=== PATIENT | female | born 1980 | race Two or more races ===

== ENCOUNTER 2019-03-31 18:20 | Outpatient (CLI) | payer SELFPAY ==
[2019-03-31 19:01] LABS: APPEARANCE,URINE CLEAR; BILIRUBIN,URINE NEGATIVE (NEGATIVE); COLOR,URINE YELLOW; GLUCOSE, URINE NEGATIVE (NEGATIVE); KETONES,URINE NEGATIVE (NEGATIVE); LEUKOCYTE ESTERASE,URINE MODERATE (NEGATIVE); NITRITE,URINE NEGATIVE (NEGATIVE); PROTEIN,URINE NEGATIVE (NEGATIVE); URINE SPECIFIC GRAVITY 1.013; UROBILINOGEN,URINE NEGATIVE mg/dL (<2.0)
[2019-03-31 19:15] LABS: URINE AMPHETAMINES SCREEN NEGATIVE; URINE BARBITURATES SCREEN NEGATIVE; URINE BENZODIAZEPINES SCREEN NEGATIVE; URINE COCAINE SCREEN NEGATIVE; URINE MARIJUANA (THC) SCREEN NEGATIVE; URINE METHADONE SCREEN NEGATIVE; URINE PHENCYCLIDINE SCREEN NEGATIVE
--- NOTE | 2019-03-31 19:51 | RADIOLOGY REPORT (SQ) ---
EXAM DESCRIPTION: U/S OB LIMITED COMPLETED DATE/TIME: 03/31/2019 7:39 pm REASON FOR STUDY: unknow gestation COMPARISON: None. TECHNIQUE: Limited transabdominal grayscale ultrasound for evaluation of specific requested obstetri alen parameters. LIMITATIONS: None. FINDINGS: EGA: 15 week 2 day. MATT: 09/20/2019. CERVICAL LENGTH: 3.2 cm. Closed. THIERRY: Adequate amount. FHR: 123 beats per minute. PRESENTATION: Variable. PLACENTA: Anterior ANATOMY: Not assessed OTHER: No other significant findings. IMPRESSION: LIMITED OBSTETRICAL ULTRASOUND WITH MEASURED PARAMETERS DELINEATED ABOVE. Trimester of : Second trimester - 13 weeks 1 day to 27 weeks 6 days. TECHNICAL DOCUMENTATION: JOB ID: [id number] [employer]- All Rights Reserved Reading location - IP/workstation name: [email or web address]
== END 2019-03-31 20:04 | disposition home or self-care (01) ==
LOC: LC 18:20 → EDBD 18:20 → LC 20:04
PROVIDERS: ATTEND Obstetrics & Gynecology Gynecology
PROC: 4A1HXCZ Monitoring of Products of Conception, Cardiac Rate, External Approach (ICD-10-PCS; principal; 2019-03-31)
DX: Z36.87 Encounter for antenatal screening for uncertain dates (principal)
CPT/HCPCS: 76815; 80307; 81001

== ENCOUNTER 2019-03-31 20:11 | Emergency (ER) | payer SELFPAY ==
[2019-03-31 23:09] LABS: ABSOLUTE BASOPHILS # (AUTO) 0.1 10^3/uL (0.0-0.2); ABSOLUTE EOSINOPHILS # (AUTO) 0.2 10^3/uL (0.0-0.6); ABSOLUTE LYMPHOCYTES (AUTO) 3.3 10^3/uL (0.5-4.7); ABSOLUTE MONOCYTES (AUTO) 0.6 10^3/uL (0.1-1.4); ABSOLUTE NEUT (AUTO) 6.5 10^3/uL (1.7-8.2); BASOPHILS % (AUTO) 0.5 % (0-2); EOSINOPHILS % (AUTO) 1.8 % (0-6); HEMATOCRIT 35.3 % (36.0-47.0); HEMOGLOBIN 11.8 g/dL (12.0-15.5); LYMPHOCYTES % (AUTO) 31.1 % (13-45); MEAN CORPUSCULAR HEMOGLOBIN 27.9 pg (27.0-33.4); MEAN CORPUSCULAR HGB CONC 33.4 g/dL (32.0-36.0); MEAN CORPUSCULAR VOLUME 84 fl (80-97); MONOCYTES % (AUTO) 5.8 % (3-13); PLATELET COUNT 288 10^3/uL (150-450); RED BLOOD COUNT 4.23 10^6/uL (3.72-5.28); SEGMENTED NEUTROPHILS % (AUTO) 60.8 % (42-78); TOTAL CELLS COUNTED % (AUTO) 100 %; WHITE BLOOD COUNT 10.6 10^3/uL (4.0-10.5)
[2019-03-31 23:16] LABS: APPEARANCE,URINE CLEAR; BILIRUBIN,URINE NEGATIVE (NEGATIVE); COLOR,URINE YELLOW; GLUCOSE, URINE NEGATIVE (NEGATIVE); KETONES,URINE NEGATIVE (NEGATIVE); LEUKOCYTE ESTERASE,URINE NEGATIVE (NEGATIVE); NITRITE,URINE NEGATIVE (NEGATIVE); PROTEIN,URINE NEGATIVE (NEGATIVE); URINE SPECIFIC GRAVITY 1.023; UROBILINOGEN,URINE NEGATIVE mg/dL (<2.0)
[2019-03-31 23:29] LABS: ALBUMIN 3.9 g/dL (3.5-5.0); ALKALINE PHOSPHATASE 59 U/L (38-126); ANION GAP 11 (5-19); ASPARTATE AMINO TRANSFERASE 20 U/L (14-36); BILIRUBIN,DIRECT 0.1 mg/dL (0.0-0.4); BILIRUBIN,TOTAL 0.2 mg/dL (0.2-1.3); BLOOD UREA NITROGEN 10 mg/dL (7-20); CARBON DIOXIDE 21 mmol/L (22-30); CHLORIDE 103 mmol/L (98-107); GLUCOSE 113 mg/dL (75-110); POTASSIUM 3.7 mmol/L (3.6-5.0); TOTAL PROTEIN 7.2 g/dL (6.3-8.2)
[2019-04-01 01:34] VITALS: BP 128/79
--- NOTE | 2019-04-01 01:42 | ER Document Report ---
ED GI/ - General Chief Complaint: Lower Abdominal Pain Stated Complaint: ABDOMINAL PAIN Time Seen by Provider: 04/01/19 00:21 Primary Care Provider: KENNETH ROTH MD [ACTIVE STAFF] - 04/04/19 Notes: 38-year-old female to emergency department chief complaining of lower pelvic pain and abdominal pain. States his symptoms have been present on and off for about a week. Does not seem to be getting worse. Has not had her OB appointment yet. Denies any vaginal bleeding. Denies any diarrhea, denies any vomiting. Does have some nausea. Denies any other major symptoms at this time. States that most the pain is located in the lower region. TRAVEL OUTSIDE OF THE [place] IN LAST 30 DAYS: No - HPI Patient complains to provider of: Abdominal pain Timing/Duration: Constant Quality of pain: Achy Severity at maximum: Moderate Severity in ED: Moderate Pain Level: 3 Location: Suprapubic Past Medical History - General Information source: Patient - Social History Smoking Status: Never Smoker Frequency of alcohol use: None Drug Abuse: None Lives with: Spouse/Significant other Family History: Reviewed & Not Pertinent - Medical History Medical History: Negative Review of Systems - Review of Systems Notes: Constitutional: denies: Chills, Diaphoresis, Fever, Malaise, Weakness EENT: denies: Eye discharge, Blurred vision, Tearing, Double vision, Nose congestion, Nose discharge, Throat swelling, Mouth pain Cardiovascular: denies: Palpitations, Heart racing, Orthopnea, Dyspnea, Chest pain Respiratory: denies: Cough, Hurts to breathe, Wheezing, Shortness of breath Gastrointestinal: denies: Abdominal pain, Diarrhea, Nausea, Vomiting, Black stools, bright red blood in stool Genitourinary: denies: Burning, Dysuria, Discharge, Frequency, Flank pain, Hematuria. Complaining of pelvic pain with he denies any vaginal bleeding. Musculoskeletal: denies: Joint pain, Joint swelling, Muscle pain, Muscle stiffness, back pain Hematologic/Lymphatic: denies: Anemia, Easy bleeding, Easy bruising, Blood clots Neurological/Psychological: denies: Confusion, Dementia, Depression, Loss of consciousness Skin: No lesions, no masses, no skin breakdown, no abscesses Physical Exam - Vital signs Vitals: Temp Pulse Resp BP Pulse Ox 98.1 F 72 18 122/65 99 03/31/19 20:26 03/31/19 20:26 03/31/19 20:26 03/31/19 20:26 03/31/19 20:26 Interpretation: Normal - General General appearance: Appears well, Alert - HEENT Head: Normocephalic, Atraumatic Eyes: Normal Pupils: PERRL - Respiratory Respiratory status: No respiratory distress Chest status: Nontender Breath sounds: Normal Chest palpation: Normal - Cardiovascular Rhythm: Regular Heart sounds: Normal auscultation Murmur: No - Abdominal Inspection: Other - Patient has a 15-week gravid appearing abdomen. Distension: No distension Bowel sounds: Normal Tenderness: Tender - Mild tenderness to palpation in the suprapubic/lower pelvic area with no guarding or rebound. Organomegaly: No organomegaly - Back Back: Normal, Nontender - Extremities General upper extremity: Normal inspection, Nontender, Normal color, Normal ROM, Normal temperature General lower extremity: Normal inspection, Nontender, Normal color, Normal ROM, Normal temperature, Normal weight bearing. No: Uma's sign - Neurological Neuro grossly intact: Yes Cognition: Normal Orientation: AAOx4 Marisela Coma Scale Eye Opening: Spontaneous [place] Coma Scale Verbal: Oriented [place] Coma Scale Motor: Obeys Commands [place] Coma Scale Total: 15 Speech: Normal Motor strength normal: LUE, RUE, LLE, RLE Sensory: Normal - Psychological Associated symptoms: Normal affect, Normal mood - Skin Skin Temperature: Warm Skin Moisture: Dry Skin Color: Normal Course - Re-evaluation Re-evalutation: 04/01/19 01:42 This is a 38-year-old female patient who is 15 weeks complaining of some lower pelvic discomfort. She was seen by HAT BLOCKING OPERATOR earlier and sent back down to the ER for the ER evaluation. She had labs and ultrasound and urinalysis performed. Patient does not know why she is hurting in the lower pelvic region because she has had 3 prior pregnancies and never felt like this before. Her last was a little over 7 years ago. Patient is 38. Denies any fever, chills, sweats, nausea is present mostly in the mornings but no vomiting. No diarrhea. No blood in her stool. No chest pain. No other issues at this time. At this time her physical exam was unremarkable. She has no right lower quadrant or right upper quadrant tenderness. Pelvic ultrasound reveals a intrauterine consistent with her dates. Her labs are unremarkable. Her urine is unremarkable. I have explained all of this to her. At this time I feel comfortable letting her go. Patient seems comfortable with the and understanding of my discharge instructions and has been advised to return if symptoms are getting worse in the next 24 hours it, if she develops a fever or for any other symptoms. Patient will be discharged at this time in stable condition. 04/01/19 01:43 04/01/19 01:44 04/01/19 01:46 Laboratory 03/31/19 03/31/19 03/31/19 22:40 22:40 22:40 WBC 10.6 H RBC 4.23 Hgb 11.8 L Hct 35.3 L MCV 84 MCH 27.9 MCHC 33.4 RDW 16.0 H Plt Count 288 Seg Neutrophils % 60.8 Lymphocytes % 31.1 Monocytes % 5.8 Eosinophils % 1.8 Basophils % 0.5 Absolute Neutrophils 6.5 Absolute Lymphocytes 3.3 Absolute Monocytes 0.6 Absolute Eosinophils 0.2 Absolute Basophils 0.1 Sodium 135.2 L Potassium 3.7 Chloride 103 Carbon Dioxide 21 L Anion Gap 11 BUN 10 Creatinine 0.48 L Est GFR ( Amer) > 60 Est GFR (Non-Af Amer) > 60 Glucose 113 H Calcium 9.0 Total Bilirubin 0.2 Direct Bilirubin 0.1 Neonat Total Bilirubin Not Reportable Neonat Direct Bilirubin Not Reportable Neonat Indirect Bili Not Reportable AST 20 ALT 16 Alkaline Phosphatase 59 Total Protein 7.2 Albumin 3.9 Lipase 67.1 Beta HCG, Quant 66022.00 H Total Beta HCG POSITIVE Urine Color YELLOW Urine Appearance CLEAR Urine pH 6.0 Ur Specific [place] 1.023 Urine Protein NEGATIVE Urine Glucose (UA) NEGATIVE Urine Ketones NEGATIVE Urine Blood NEGATIVE Urine Nitrite NEGATIVE Urine Bilirubin NEGATIVE Urine Urobilinogen NEGATIVE Ur Leukocyte Esterase NEGATIVE Urine WBC (Auto) 1 Urine RBC (Auto) 1 Squamous Epi Cells Auto 1 Urine Mucus (Auto) OCC Urine Ascorbic Acid 20 H - Vital Signs Vital signs: Temp Pulse Resp BP Pulse Ox 98.1 F 91 12 128/79 H 100 03/31/19 20:26 04/01/19 01:33 04/01/19 01:33 04/01/19 01:33 04/01/19 01:33 - Laboratory Result Diagrams: 03/31/19 22:40 03/31/19 22:40 Laboratory results interpreted by me: 03/31/19 03/31/19 03/31/19 22:40 22:40 22:40 WBC 10.6 H Hgb 11.8 L Hct 35.3 L RDW 16.0 H Sodium 135.2 L Carbon Dioxide 21 L Creatinine 0.48 L Glucose 113 H Beta HCG, Quant 97654.00 H Urine Ascorbic Acid 20 H Discharge - Discharge Clinical Impression: Round ligament pain Condition: Good Disposition: HOME, SELF-CARE Instructions: Observation for Appendicitis ([facility]), Pelvic Pain in and Round Ligament Pain ([facility]) Referrals: KENNETH ROTH MD [ACTIVE STAFF] - 04/04/19 Print Language: Palauan
[2019-04-01] MEDS ORDERED: ACETAMINOPHEN 325 MG TABLET PO ONE (02:04)
[2019-04-01] MEDS ORDERED: ACETAMINOPHEN 325 MG TABLET ONE (02:06)
== END 2019-04-01 02:10 | disposition home or self-care (01) ==
LOC: ER 20:11
DX: O26.892 Other specified pregnancy related conditions, second trimester (principal); R10.2 Pelvic and perineal pain; R11.0 Nausea; Z3A.15 15 weeks gestation of pregnancy
CPT/HCPCS: 36415; 80053; 81001; 83690; 84702; 85025; 99284

== ENCOUNTER → 2019-04-04 | Outpatient (CLI) | payer SELFPAY ==
--- NOTE | 2019-04-04 16:40 | RADIOLOGY REPORT (SQ) ---
EXAM DESCRIPTION: U/S [id number] TRNABD 1GES W/ODOP COMPLETED DATE/TIME: 04/04/2019 3:23 pm REASON FOR STUDY: Z34.81 ENCOUNTER FOR SUPRVSN OF NORMAL , FIRST TRIMESTER Z34.81 ENCOUNTE R FOR SUPRVSN OF NORMAL , FIRST TRIM COMPARISON: 03/31/2019. TECHNIQUE: Static and Dynamic grayscale imaging performed of gravid uterus using transabdominal appr oach. Additional selected color Doppler and spectral images recorded. All stored on PACS. LIMITATIONS: Limited anatomic detail due to the small size and position. FINDINGS: FETUSES SEEN:1 EGA: 16 week 1 day. Calculated using BPD,FL,HC,AC documented on images. Clinical dates 15 week 0 day . MATT: 09/18/2019. EFW: 144 grams PERCENTILE: Not applicable. Fetus less than or equal to 20 weeks gestation. THIERRY: Largest pocket 3.3 cm. PLACENTA: Anterior. GRADE: I PRESENTATION: Cephalic. ANATOMY: HEART RATE: 165 beats per minute. FOUR CHAMBER HEART: Not visualized. THREE VESSEL CORD: Not visualized. CORD INSERTION: Not visualized. KIDNEYS AND BLADDER: The visualized. STOMACH: Visualized. Appears normal. SPINE: Not adequately visualized. BRAIN AND LATERAL VENTRICLES: Visualized. Appear normal. OTHER: No other significant finding. MATERNAL ADNEXA: Maternal ovaries not visualized. CERVICAL LENGTH: 3.3 cm. Closed. OTHER: No other significant finding. IMPRESSION: LIVING INTRAUTERINE . ESTIMATED GESTATIONAL AGE 16 WEEK 1 DAY. LIMITED ANATOMIC EVALUATION DUE TO THE SMALL SIZE AND POSITIONING. NO VISUALIZED ANOMALIES. Trimester of : Second trimester - 13 weeks 1 day to 27 weeks 6 days. TECHNICAL DOCUMENTATION: JOB ID: [id number] [email or web address]- All Rights Reserved Reading location - IP/workstation name: [email or web address]
== END ==
LOC: EDBD 14:30 → MERGE 14:30 → RAD 14:30
PROVIDERS: ATTEND Midwife
DX: Z34.81 Encounter for supervision of other normal pregnancy, first trimester (principal)
CPT/HCPCS: 76801

== ENCOUNTER → 2019-05-02 | Outpatient (CLI) | payer SELFPAY ==
--- NOTE | 2019-05-02 15:01 | RADIOLOGY REPORT (SQ) ---
EXAM DESCRIPTION: U/S OB 14+ TRNABD 1GES W/O DOP COMPLETED DATE/TIME: 05/02/2019 2:27 pm REASON FOR STUDY: Z34.82 ENCOUNTER FOR SUPRVSN OF NORMAL , SECOND TRIMESTER Z34.82 ENCOUNT ER FOR SUPRVSN OF NORMAL , SECOND TRI COMPARISON: 04/04/2019. TECHNIQUE: Static and Dynamic grayscale imaging performed of gravid uterus using transabdominal appr oach. Additional selected color Doppler and spectral images recorded. All stored on PACS. LIMITATIONS: None. FINDINGS: FETUSES SEEN:1 EGA: 19 week 5 day. Calculated using BPD,FL,HC,AC documented on images. No discrepancy with clinical dates. MATT: 09/21/2019. EFW: 323 grams PERCENTILE: Not applicable. Fetus less than or equal to 20 weeks gestation. THIERRY: Adequate amount. PLACENTA: Anterior. GRADE: 0 PRESENTATION: Variable. ANATOMY: HEART RATE: 140 beats per minute. FOUR CHAMBER HEART: Visualized. THREE VESSEL CORD: Yes. CORD INSERTION: Visualized. KIDNEYS AND BLADDER: Visualized. Appear normal. STOMACH: Visualized. Appears normal. SPINE: Normal as visualized. BRAIN AND LATERAL VENTRICLES: Cerebellum and cisterna magna not adequately visualized. Normal brain a s visualized. OTHER: No other significant finding. MATERNAL ADNEXA: Maternal ovaries not visualized. CERVICAL LENGTH: 2.8 cm. Closed. OTHER: No other significant finding. IMPRESSION: LIVING INTRAUTERINE . ESTIMATED GESTATIONAL AGE 19 WEEK 5 DAY. NO VISUALIZED ANOMALIES. Trimester of : Second trimester - 13 weeks 1 day to 27 weeks 6 days. TECHNICAL DOCUMENTATION: JOB ID: [id number] [employer]- All Rights Reserved Reading location - IP/workstation name: [email or web address]
== END ==
LOC: RAD 13:42
PROVIDERS: ATTEND Nurse Practitioner Family
DX: Z34.82 Encounter for supervision of other normal pregnancy, second trimester (principal)
CPT/HCPCS: 76805

== ENCOUNTER 2019-09-05 14:26 | Outpatient (CLI) | payer SELFPAY ==
--- NOTE | 2019-09-05 15:01 | Non Stress Test Report ---
Non Stress Test Datetime Report Generated by CPN: 09/05/2019 15:01 DEMOGRAPHIC EGA NST: 37.6 INDICATION Indication for Study (NST) Other: [facility] AMA biweekly NST MONITORING Monitor Explained: Monitor Explained; Test Explained; Patient Verbalized Understanding Time on Monitor: 09/05/2019 14:39 Time off Monitor: 09/05/2019 15:00 NST Duration: 21 NST INTERVENTIONS NST Interventions: PO Hydration; Reposition Patient Physician Notified NST: A Browne CNm BABY A: [id number] BABY A Movement : Present Contraction Frequency : occasional FHR Baseline : 115 Accelerations : 15X15 Decelerations : None Variability : Moderate 6-25bpm NST Review: Meets Criteria for Reactive NST NST Review and Verified By : Venkata Madrid RN NST Results: Reactive NST REPORT Report Trigger: Send Report
--- NOTE | 2019-09-05 16:57 | RADIOLOGY REPORT (SQ) ---
EXAM DESCRIPTION: U/S OB LIMITED COMPLETED DATE/TIME: 09/05/2019 4:45 pm REASON FOR STUDY: THIERRY for AMA COMPARISON: 05/02/2019 TECHNIQUE: Limited transabdominal grayscale ultrasound for evaluation of specific requested obstetri alen parameters. LIMITATIONS: None. FINDINGS: CERVICAL LENGTH: 2 cm. Closed. THIERRY: 15.8 cm. FHR: 139 beats per minute. PRESENTATION: Cephalic. PLACENTA: Anterior. There are some small venous lakes. ANATOMY: Not assessed OTHER: Gestational age 38 weeks 1 day. IMPRESSION: LIMITED OBSTETRICAL ULTRASOUND WITH MEASURED PARAMETERS DELINEATED ABOVE. Trimester of : Third trimester - 28 weeks to delivery. TECHNICAL DOCUMENTATION: JOB ID: [id number] [employer]- All Rights Reserved Reading location - IP/workstation name: [email or web address]
== END 2019-09-05 17:00 | disposition home or self-care (01) ==
LOC: LC 14:26
PROVIDERS: ATTEND Obstetrics & Gynecology
PROC: 4A1HXCZ Monitoring of Products of Conception, Cardiac Rate, External Approach (ICD-10-PCS; principal; 2019-09-05)
DX: O09.523 Supervision of elderly multigravida, third trimester (principal); Z3A.37 37 weeks gestation of pregnancy
CPT/HCPCS: 59025; 76815

== ENCOUNTER 2019-09-08 06:01 | Outpatient (CLI) | payer SELFPAY ==
[2019-09-08 07:31] LABS: APPEARANCE,URINE CLEAR; BILIRUBIN,URINE NEGATIVE (NEGATIVE); COLOR,URINE YELLOW; GLUCOSE, URINE NEGATIVE (NEGATIVE); KETONES,URINE NEGATIVE (NEGATIVE); LEUKOCYTE ESTERASE,URINE NEGATIVE (NEGATIVE); NITRITE,URINE NEGATIVE (NEGATIVE); PROTEIN,URINE NEGATIVE (NEGATIVE); URINE SPECIFIC GRAVITY 1.009; UROBILINOGEN,URINE NEGATIVE mg/dL (<2.0)
[2019-09-08 07:53] LABS: URINE AMPHETAMINES SCREEN NEGATIVE; URINE BARBITURATES SCREEN NEGATIVE; URINE BENZODIAZEPINES SCREEN NEGATIVE; URINE COCAINE SCREEN NEGATIVE; URINE MARIJUANA (THC) SCREEN NEGATIVE; URINE METHADONE SCREEN NEGATIVE; URINE PHENCYCLIDINE SCREEN NEGATIVE
--- NOTE | 2019-09-08 09:19 | Non Stress Test Report ---
Non Stress Test Datetime Report Generated by CPN: 09/08/2019 09:19 DEMOGRAPHIC EGA NST: 38.2 INDICATION Indication for Study (NST) Other: LC VITAL SIGNS Temperature - NST: 97.8 Pulse - NST: 61 RESP - NST: 15 NBPSYS NST: 118 NBPDIA NST: 67 MONITORING Monitor Explained: Monitor Explained; Test Explained; Patient Verbalized Understanding Time on Monitor: 09/08/2019 08:35 Time off Monitor: 09/08/2019 09:02 NST Duration: 27 NST INTERVENTIONS NST Interventions: PO Hydration Physician Notified NST: Dr Iqabl BABY A: [id number] BABY A Movement : Present Contraction Frequency : irregular FHR Baseline : 120 Accelerations : 15X15 Decelerations : None Variability : Moderate 6-25bpm NST Review: Meets Criteria for Reactive NST NST Review and Verified By : Susana Grullon RN NST Results: Reactive NST REPORT Report Trigger: Send Report
== END 2019-09-08 09:13 | disposition home or self-care (01) ==
LOC: LC 06:01
PROVIDERS: ATTEND Obstetrics & Gynecology
PROC: 4A1HXCZ Monitoring of Products of Conception, Cardiac Rate, External Approach (ICD-10-PCS; principal; 2019-09-08)
DX: O36.8130 Decreased fetal movements, third trimester, not applicable or unspecified (principal); O46.93 Antepartum hemorrhage, unspecified, third trimester; O47.1 False labor at or after 37 completed weeks of gestation; O09.523 Supervision of elderly multigravida, third trimester; Z3A.38 38 weeks gestation of pregnancy
CPT/HCPCS: 59025; 80307; 81005

== ENCOUNTER 2019-09-09 02:21 | Inpatient (IN) | payer MEDICAID ==
[2019-09-09] MEDS ORDERED: RINGERS SOLUTION,LACTATED 1,000 ML IV PRN (02:41)
[2019-09-09] MEDS ORDERED: LIDOCAINE 1% INJ-PF (10 MG/ML) 30 ML SDV ONE (02:43)
[2019-09-09] MEDS ORDERED: OXYTOCIN 10 UNIT/ML VIAL ONE (02:43)
[2019-09-09] MEDS ORDERED: MISOPROSTOL 0.2 MG TABLET ONE (02:43)
[2019-09-09] MEDS ORDERED: OXYTOCIN/NORMAL SALINE 20 UNIT/1,000 ML RTUINJ ONE (02:43)
[2019-09-09 03:09] LABS: APPEARANCE,URINE CLEAR; BILIRUBIN,URINE NEGATIVE (NEGATIVE); COLOR,URINE YELLOW; GLUCOSE, URINE NEGATIVE (NEGATIVE); KETONES,URINE NEGATIVE (NEGATIVE); LEUKOCYTE ESTERASE,URINE NEGATIVE (NEGATIVE); NITRITE,URINE NEGATIVE (NEGATIVE); PROTEIN,URINE NEGATIVE (NEGATIVE); URINE SPECIFIC GRAVITY 1.018; UROBILINOGEN,URINE NEGATIVE mg/dL (<2.0)
[2019-09-09 03:13] LABS: ABSOLUTE EOSINOPHILS # (AUTO) 0.1 10^3/uL (0.0-0.6); ABSOLUTE LYMPHOCYTES (AUTO) 2.5 10^3/uL (0.5-4.7); ABSOLUTE MONOCYTES (AUTO) 0.5 10^3/uL (0.1-1.4); ABSOLUTE NEUT (AUTO) 5.2 10^3/uL (1.7-8.2); BASOPHILS % (AUTO) 0.5 % (0-2); EOSINOPHILS % (AUTO) 0.9 % (0-6); HEMATOCRIT 39.2 % (36.0-47.0); HEMOGLOBIN 13.3 g/dL (12.0-15.5); LYMPHOCYTES % (AUTO) 30.5 % (13-45); MEAN CORPUSCULAR HEMOGLOBIN 29.5 pg (27.0-33.4); MEAN CORPUSCULAR HGB CONC 33.8 g/dL (32.0-36.0); MEAN CORPUSCULAR VOLUME 87 fl (80-97); PLATELET COUNT 233 10^3/uL (150-450); RED CELL DISTRIBUTION WIDTH 16.6 % (11.5-14.0); SEGMENTED NEUTROPHILS % (AUTO) 62.1 % (42-78); TOTAL CELLS COUNTED % (AUTO) 100 %; WHITE BLOOD COUNT 8.3 10^3/uL (4.0-10.5)
[2019-09-09 03:25] LABS: URINE AMPHETAMINES SCREEN NEGATIVE; URINE BARBITURATES SCREEN NEGATIVE; URINE BENZODIAZEPINES SCREEN NEGATIVE; URINE COCAINE SCREEN NEGATIVE; URINE MARIJUANA (THC) SCREEN NEGATIVE; URINE METHADONE SCREEN NEGATIVE; URINE PHENCYCLIDINE SCREEN NEGATIVE
[2019-09-09] MEDS ORDERED: NA PHOS,M-B/NA PHOS,DI-BA (ADULT) 133 ML ENEMA PR PRN (04:09)
[2019-09-09] MEDS ORDERED: PSEUDOEPHEDRINE HCL 30 MG TABLET PO PRN (04:09)
[2019-09-09] MEDS ORDERED: ACETAMINOPHEN WITH CODEINE #3 TABLET PO PRN ×2 (04:09)
[2019-09-09] MEDS ORDERED: DIBUCAINE 1% OINTMENT 28 GM TP PRN (04:09)
[2019-09-09] MEDS ORDERED: BENZOCAINE/MENTHOL AEROSOL SPRAY 56 ML TOP PRN (04:09)
[2019-09-09] MEDS ORDERED: GLYCERIN/WITCH HAZEL LEAF 1 EACH MED..WIPE TP PRN (04:09)
[2019-09-09] MEDS ORDERED: DIPHENHYDRAMINE HCL 25 MG CAPSULE PO PRN (04:09)
[2019-09-09] MEDS ORDERED: PROMETHAZINE HCL 25 MG TABLET PO PRN (04:09)
[2019-09-09] MEDS ORDERED: MEASLES,MUMPS&RUBELLA VACC/PF 0.5 ML VIAL SUBCUT PRN (04:09)
[2019-09-09] MEDS ORDERED: ACETAMINOPHEN 650 MG SUPP.RECT PR PRN (04:09)
[2019-09-09] MEDS ORDERED: OXYTOCIN/NORMAL SALINE 20 UNIT/1,000 ML RTUINJ IV PRN (04:09)
[2019-09-09] MEDS ORDERED: PROMETHAZINE HCL INJ 25 MG/1 ML VIAL IV PRN (04:09)
[2019-09-09] MEDS ORDERED: MAGNESIUM HYDROXIDE SUSP 30 ML UDCUP PO PRN (04:09)
[2019-09-09] MEDS ORDERED: DIPH/PERTUSS(ACELL)/TETANUS VAC/PF 0.5 ML SYR (>=10YO) IM PRN (04:09)
[2019-09-09] MEDS ORDERED: PROMETHAZINE HCL 25 MG SUPP.RECT PR PRN (04:09)
[2019-09-09] MEDS ORDERED: ZOLPIDEM TARTRATE 5 MG TABLET PO PRN (04:09)
[2019-09-09] MEDS ORDERED: ACETAMINOPHEN WITH CODEINE #3 TABLET ONE (04:33)
[2019-09-09] MEDS ORDERED: IBUPROFEN 800 MG TABLET ONE (04:34)
--- NOTE | 2019-09-09 06:04 | Delivery Summary ---
Del Sum A-C Datetime Report Generated by CPN: 09/09/2019 06:04 DELIVERY PERSONNEL DELIVERY PERSONNEL: [id number] Delivery Doctor:: Juan Iqbal MD Labor and Delivery Nurse:: Morenita Carmichael RNart editor Nurse:: Jess Hester RNC Nursery Nurse:: Britta Gomez RN Clothes Ironer/ANTENNA ENGINEER: ST Erich Clothes Ironer/ANTENNA ENGINEER: ST Melquiades Additional Personnel: : Deanna Rodriguez RN MATERNAL INFORMATION Delivery Anesthesia: None Medications After Delivery: Pitocin Bolus-Please Comment Meds After Delivery Comment: Pitocin 20 units Estimated Blood Loss (ml): 200 Delivery QBL: 200 Maternal Complications: Precipitous Labor (<3hrs) LABOR SUMMARY EDC: 09/25/2019 00:00 No. Babies in Womb: 1 Attempted: Yes Labor Anesthesia: None LABOR INFORMATION Reason for Induction: Not Applicable Onset of Labor: 09/09/2019 00:15 Complete Dilatation: 09/09/2019 03:45 Group B Beta Strep: negative Antibiotics # of Doses: n/a Steroids Given: None Reason Steroids Not Administered: Not Applicable Other Reason Not Administered: n/a MEMBRANES Membranes Rupture Method: Spontaneous Rupture of Membranes: 09/09/2019 03:42 Length of Rupture (hr): 0.07 Amniotic Fluid Color: Clear Amniotic Fluid Amount: Moderate Amniotic Fluid Odor: Normal STAGES OF LABOR Stage 1 hr: 3 Stage 1 min: 30 Stage 2 hr: 0 Stage 2 min: 1 Stage 3 hr: 0 Stage 3 min: 13 Total Time in Labor hr: 3 Total Time in Labor min: 44 VAGINAL DELIVERY Episiotomy: None Laceration #1: None Laceration Extension #1: N/A Laceration Repair: Not Applicable Sponge Count Correct: Yes Sharps Count Correct: Yes CSECTION DELIVERY Primary Indication: N/A Secondary Indication: N/A CSection Incidence: N/A Labor: N/A Elective: N/A CSection Incision: N/A BABY A INFORMATION Delivery Date/Time: 09/09/2019 03:46 Method of Delivery: Vaginal Born in Route : No : Successful Forceps: N/A Vacuum Extraction: N/A Shoulder Dystocia : No PRESENTATION/POSITION BABY A Presentation: Cephalic Cephalic Presentation: Vertex Vertex Position: Left Occipital Anterior Breech Presentation: N/A PLACENTA INFORMATION BABY A Placenta Delivery Time : 09/09/2019 03:59 Placenta Method of Delivery: Spontaneous Placenta Status: Delivered SCORES BABY A Heart Rate 1 min: >100 bpm Resp Effort 1 min: Good Cry Reflex Irritability 1 min: Cough or Sneeze or Pulls Away Muscle Tone 1 min: Some Flexion of Extremities Color 1 min: Body [place], Extremities Blue Resuscitation Effort 1 min: Tactile Stimulation SCORE 1 MIN: 8 Heart Rate 5 min: >100 bpm Resp Effort 5 min: Good Cry Reflex Irritability 5 min: Cough or Sneeze or Pulls Away Muscle Tone 5 min: Active Motion Color 5 min: Body [place], Extremities Blue Resuscitation Effort 5 min: Tactile Stimulation SCORE 5 MIN: 9 INFANT INFORMATION BABY A Gestational Age at Delivery: 38.3 Gestational Status: Early Term- 37- 38.6 Weeks Infant Outcome : Liveborn Condition : Stable Sex: Female IDENTIFICATION BABY A Infant Verification Date/Time: 09/09/2019 04:13 ID Band Number: [id number] Mother's Name Verified: Yes Infant RN Verifying : Adalberto Carmichael, RN Additional Verifying Personnel: ERadu Dunaway, RN WEIGHT/LENGTH BABY A Birthweight (gm): 2760 Weight (lb): 6 Infant Weight (oz): 1 Length (in): 19.25 Infant Length (cm): 48.90 CORD INFORMATION BABY A No. Cord Vessels: 3 Nuchal Cord : N/A Cord Blood Taken: Yes-For Storage (Mom's Blood type +) Infant Suction: None ASSESSMENT BABY A Complications: None Physical Findings at Delivery: Within Normal Limits Respirations: Appears Normal Skin to Skin: No Stable Cleaner/ALS Called : No Infant Care By: Tyron Hester, RN Transferred To: Remains with Mother BABY B INFORMATION : N/A SIGNATURES Signature: with User ID: [email or web address]
[2019-09-09] MEDS: IBUPROFEN 800 MG TABLET PO SCH ×3 (07:22→22:18)
[2019-09-09] MEDS: DOCUSATE SODIUM 100 MG CAPSULE PO SCH ×2 (09:48→17:57)
[2019-09-09] MEDS: FERROUS SULFATE 325 MG TABLET PO SCH ×2 (09:48→17:57)
[2019-09-09] MEDS: SENNOSIDES/DOCUSATE 8.6-50 MG 1 EACH TABLET PO SCH (09:48)
[2019-09-09] MEDS: PRENATAL VITAMIN W DHA CAPSULE PO SCH (09:49)
[2019-09-09] MEDS: FAMOTIDINE 20 MG TABLET PO SCH ×2 (09:49→22:17)
[2019-09-10] MEDS: IBUPROFEN 800 MG TABLET PO SCH ×3 (06:04→22:01)
[2019-09-10 07:25] LABS: HEMATOCRIT 32.9 % (36.0-47.0); MEAN CORPUSCULAR HEMOGLOBIN 29.6 pg (27.0-33.4); MEAN CORPUSCULAR HGB CONC 33.7 g/dL (32.0-36.0); MEAN CORPUSCULAR VOLUME 88 fl (80-97); PLATELET COUNT 193 10^3/uL (150-450); RED BLOOD COUNT 3.75 10^6/uL (3.72-5.28); WHITE BLOOD COUNT 10.3 10^3/uL (4.0-10.5)
[2019-09-10 07:29] LABS: HEMOGLOBIN 11.1 g/dL (12.0-15.5)
--- NOTE | 2019-09-10 08:42 | PDOC PROGRESS REPORT ---
Subjective-OB Progress Note for:: 09/10/19 Subjective: sitting on side of bed eating, family at BS, baby in nursery since last night, breast/bottle feeding, ambulating, scant bleeding Physical Exam (OB) Vital Signs: Temp Pulse Resp BP Pulse Ox 97.5 F 76 16 117/53 L 100 09/10/19 07:20 09/10/19 07:20 09/10/19 07:20 09/10/19 07:20 09/10/19 07:20 Intake & Output 09/09/19 09/10/19 09/11/19 06:59 06:59 06:59 Weight 72.9 kg - Lochia Lochia Amount: Scant < 10 ml Lochia Color: Rubra/Red - Abdomen Description: Round Hernia Present: No Fundal Description: Firm Fundal Height: u/u - u/2 Objective-Diagnostic Laboratory: 09/10/19 06:50 09/10/19 06:50 WBC 10.3 RBC 3.75 Hgb 11.1 L D Hct 32.9 L MCV 88 MCH 29.6 MCHC 33.7 RDW 17.0 H Plt Count 193 Assessment and Plan(PN) - Assessment and Plan (1) Vaginal delivery Is this a current diagnosis for this admission?: Yes (2) AMA (advanced maternal age) multigravida 35+ Qualifiers: Trimester: first trimester Qualified Code(s): O09.521 - Supervision of elderly multigravida, first trimester Is this a current diagnosis for this admission?: Yes - Time Spent with Patient Time with patient: Less than 15 minutes Medications reviewed and adjusted accordingly: Yes - Disposition Anticipated Discharge: Home Within: within 24 hours
[2019-09-10] MEDS: FAMOTIDINE 20 MG TABLET PO SCH ×2 (10:49→22:01)
[2019-09-10] MEDS: SENNOSIDES/DOCUSATE 8.6-50 MG 1 EACH TABLET PO SCH (10:49)
[2019-09-10] MEDS: DOCUSATE SODIUM 100 MG CAPSULE PO SCH ×2 (10:49→19:39)
[2019-09-10] MEDS: FERROUS SULFATE 325 MG TABLET PO SCH ×2 (10:49→19:39)
[2019-09-10] MEDS: PRENATAL VITAMIN W DHA CAPSULE PO SCH (10:49)
[2019-09-11] MEDS: IBUPROFEN 800 MG TABLET PO SCH ×2 (05:57→13:05)
[2019-09-11 07:46] VITALS: BP 125/68
--- NOTE | 2019-09-11 09:02 | PDOC DISCHARGE SUMMARY ---
Impression - Admit/DC Date/PCP Admission Date/Primary Care Provider: 09/09/19 02:47 Discharge Date: 09/11/19 - PP Day #2, doing well, no complaints, states baby may not be discharged today, consider nesting. B+, Rubella Immune, breast and bottlefeeding, Pt did . Baby in NICU due to issues r/t Down Syndrome - Additional Information Resuscitation Status: Full Code Discharge Diet: As Tolerated, Regular Discharge Activity: Activity As Tolerated, No Lifting Over 10 Pounds, Pelvic Rest Prescriptions: Ibuprofen [Motrin 800 mg Tablet] 800 mg PO Q8 #60 tablet Home Medications: Pv W-O Vit A/Iron,Carbonyl/FA [Prenatabs Obn Tablet] 1 tab PO DAILY 12/06/11 Ibuprofen [Motrin 800 mg Tablet] 800 mg PO Q8 #60 tablet 09/11/19 HPI Reason(s) for Admission: Onset of Labor Procedures: Ultrasound Intrapartum Procedure(s): Spontaneous Vaginal Delivery Intrapartum Procedure Note: successful Hospital Course Hospital Course: routine PP course Results Laboratory Results: WBC 10.3 10^3/uL (4.0-10.5) 09/10/19 06:50 RBC 3.75 10^6/uL (3.72-5.28) 09/10/19 06:50 Hgb 11.1 g/dL (12.0-15.5) L D 09/10/19 06:50 Hct 32.9 % (36.0-47.0) L 09/10/19 06:50 MCV 88 fl (80-97) 09/10/19 06:50 MCH 29.6 pg (27.0-33.4) 09/10/19 06:50 MCHC 33.7 g/dL (32.0-36.0) 09/10/19 06:50 RDW 17.0 % (11.5-14.0) H 09/10/19 06:50 Plt Count 193 10^3/uL (150-450) 09/10/19 06:50 Lymph % (Auto) 30.5 % (13-45) 09/09/19 02:57 [place] % (Auto) 6.0 % (3-13) 09/09/19 02:57 Eos % (Auto) 0.9 % (0-6) 09/09/19 02:57 Baso % (Auto) 0.5 % (0-2) 09/09/19 02:57 Absolute Neuts (auto) 5.2 10^3/uL (1.7-8.2) 09/09/19 02:57 Absolute Lymphs (auto) 2.5 10^3/uL (0.5-4.7) 09/09/19 02:57 Absolute Monos (auto) 0.5 10^3/uL (0.1-1.4) 09/09/19 02:57 Absolute Eos (auto) 0.1 10^3/uL (0.0-0.6) 09/09/19 02:57 Absolute Basos (auto) 0.0 10^3/uL (0.0-0.2) 09/09/19 02:57 Seg Neutrophils % 62.1 % (42-78) 09/09/19 02:57 Urine Color YELLOW 09/09/19 02:38 Urine Appearance CLEAR 09/09/19 02:38 Urine pH 6.0 (5.0-9.0) 09/09/19 02:38 Ur Specific [place] 1.018 09/09/19 02:38 Urine Protein NEGATIVE mg/dL (NEGATIVE) 09/09/19 02:38 Urine Glucose (UA) NEGATIVE mg/dL (NEGATIVE) 09/09/19 02:38 Urine Ketones NEGATIVE mg/dL (NEGATIVE) 09/09/19 02:38 Urine Blood MODERATE (NEGATIVE) H 09/09/19 02:38 Urine Nitrite NEGATIVE (NEGATIVE) 09/09/19 02:38 Urine Bilirubin NEGATIVE (NEGATIVE) 09/09/19 02:38 Urine Urobilinogen NEGATIVE mg/dL (<2.0) 09/09/19 02:38 Ur Leukocyte Esterase NEGATIVE (NEGATIVE) 09/09/19 02:38 Urine Ascorbic Acid NEGATIVE (NEGATIVE) 09/09/19 02:38 Urine Opiates Screen NEGATIVE 09/09/19 02:38 Urine Methadone Screen NEGATIVE 09/09/19 02:38 Ur Barbiturates Screen NEGATIVE 09/09/19 02:38 Ur Phencyclidine Scrn NEGATIVE 09/09/19 02:38 Ur Amphetamines Screen NEGATIVE 09/09/19 02:38 U Benzodiazepines Scrn NEGATIVE 09/09/19 02:38 Urine Cocaine Screen NEGATIVE 09/09/19 02:38 U Marijuana (THC) Screen NEGATIVE 09/09/19 02:38 RPR NONREACTIVE (NONREACTIVE) 09/09/19 02:57 Blood Type B POSITIVE 09/09/19 02:57 Antibody Screen NEGATIVE 09/09/19 02:57 Plan Health Concerns: Pt desires BTL, f/up at health dept. Plan of Treatment: D/c home, f/up with [facility] in 4 wks for PP ck Time Spent: Less than 30 Minutes
[2019-09-11] MEDS: PRENATAL VITAMIN W DHA CAPSULE PO SCH (10:04)
[2019-09-11] MEDS: FERROUS SULFATE 325 MG TABLET PO SCH (10:04)
[2019-09-11] MEDS: SENNOSIDES/DOCUSATE 8.6-50 MG 1 EACH TABLET PO SCH (10:04)
[2019-09-11] MEDS: DOCUSATE SODIUM 100 MG CAPSULE PO SCH (10:04)
[2019-09-11] MEDS: FAMOTIDINE 20 MG TABLET PO SCH (10:38)
--- NOTE | 2019-10-01 15:28 | Admission Physical ---
Datetime Report Generated by CPN: 10/01/2019 15:27 CURRENT ADMISSION Chief Complaint: Uterine Contractions Indication for Induction: Not Applicable Admit Impression : Term, Intrauterine Admit Plan: Admit to Unit; Initiate Labor Protocol ALLERGIES Medication Allergies: No Medication Allergies: No Known Allergies (09/05/2019) Medication Allergies: No Known Allergies (04/01/2019) Medication Allergies: [id number] Latex: No Latex Allergies Food Allergies: none Environmental Allergies: none OBSTETRICAL HISTORY EDC: 09/25/2019 00:00 : 4 Para: 3 Livin Cesareans: 1 Gestational Diabetes: No Rh Sensitization: No Incompetent Cervix: No ANAM: No Infertility: No ART Treatment: No Uterine Anomaly: No IUGR: No Hx Previous C/S: No Macrosomia: No Hx Loss/Stillborn: No PIH: No Hx : No Placenta Previa/Abruption: No Depression/PP Depression: No PTL/PROM: No Post Hemorrhage: No Current Procedures: Ultrasound; NST Obstetrical History Comments: G1: c/section for breech G2: G3: current- AMA postive quad screen, refused NIPS SEE RECORDS Alcohol: No Marijuana : No Cocaine: No Other Illicit Drugs: No Cigarettes: Never Smoker. 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 Heart Disease: No Hosp/Surgery: Yes Autoimmune Disorder: No Anesthetic Complications: No Kidney Disease: No Abnormal Pap Smear: No Neuro/Epilepsy: No Psychiatric Disorders: No Other Medical Diseases: No Hepatitis/Liver Disease: No Significant Family History: No Varicosities/Phlebitis: No Trauma/Violence : No Thyroid Dysfunction: No Medical History Comments: childbirth INFECTIOUS HISTORY Gonorrhea: No Genital Herpes: No Chlamydia: No Tuberculosis: No Syphilis: No Hepatitis: No HIV/AIDS Exposure: No Rash or Viral Illness: No HPV: No PHYSICAL EXAM General: Normal HEENT: Normal Neurologic: Normal Thyroid: Normal Heart: Normal Lungs: Normal Breast: Deferred Back: Normal Abdomen: Normal Genitourinary Exam: Normal Extremities: Normal DTRs: Normal Pelvic Type: Adequate FETUS A EGA: 38.0 PLANS FOR LABOR AND DELIVERY Labor and Delivery: None Pain Management: Epidural Feeding Preference: Both Benefit of Breast Feed Discussed: Yes Circumcision: N/A INFORMED CONSENT Signature: with User ID: [email or web address]
== END 2019-09-11 14:52 | disposition home or self-care (01) | DRG 807 ==
LOC: LC 02:21 → LR 02:47 → 2S 06:21
PROVIDERS: ADMIT Obstetrics & Gynecology Gynecology; ATTEND Obstetrics & Gynecology Gynecology
PROC: 10E0XZZ Delivery of Products of Conception, External Approach (ICD-10-PCS; principal; 2019-09-09)
DX: O62.3 Precipitate labor (principal); O34.219 Maternal care for unspecified type scar from previous cesarean delivery; Z3A.38 38 weeks gestation of pregnancy; Z37.0 Single live birth
CPT/HCPCS: 36415; 80307; 81005; 85025; 85027; 86592; 86850; 86900; 86901; J2590; J3490